=== PATIENT | male | born 1980 | race African-American/Black ===

== ENCOUNTER 2021-07-10 06:29 | Emergency (ER) | payer OTHER ==
[~2021-07-10] VITALS: Ht 170.2 cm; Wt 63.5 kg
[2021-07-10] MEDS ORDERED: ENTRESTO 49 MG1 EACH PO (06:41)
[2021-07-10] MEDS ORDERED: SPIRONOLACTONE25 MG PO (06:41)
[2021-07-10] MEDS ORDERED: BIKTARVY 50-201 EACH PO (06:41)
[2021-07-10] MEDS ORDERED: PROTONIX40 M2 PO (06:41)
[2021-07-10] MEDS ORDERED: XARELTO20 MG PO (06:42)
[2021-07-10] MEDS ORDERED: TOPROL XL100 MG PO (06:42)
[2021-07-10] MEDS ORDERED: ZYRTEC10 M4 PO (06:43)
[2021-07-10 07:50] VITALS: BP 124/85
== END 2021-07-10 07:50 | disposition home or self-care (01) ==
LOC: ER 06:29
DX: S86.812A Strain of other muscle(s) and tendon(s) at lower leg level, left leg, initial encounter (principal); M25.562 Pain in left knee; I50.9 Heart failure, unspecified; I11.0 Hypertensive heart disease with heart failure; K21.9 Gastro-esophageal reflux disease without esophagitis; Z21 Asymptomatic human immunodeficiency virus [HIV] infection status; Z79.899 Other long term (current) drug therapy; X50.1XXA Overexertion from prolonged static or awkward postures, initial encounter; Y93.89 Activity, other specified; Y92.89 Other specified places as the place of occurrence of the external cause; Y99.8 Other external cause status